=== PATIENT | male | born 1955 | race Caucasian/White ===

== ENCOUNTER 2018-07-06 16:06 | Emergency (ER) | payer BC, OTHER ==
[~2018-07-06] VITALS: Ht 177.8 cm; Wt 76.6 kg
[~2018-07-06 16:06] MED LIST: AMANTADINE100 MG; CARBIDOPA-LEVO1 EAC2; CARBIDOPA/LEVO1 EACH PO; FLOMAX0.4 M1; FLOMAX0.4 MG PO; PERCOCET 5/31 TABLET PO; STALEVO 1501 TAB; SYMMETREL100 MG PO
[2018-07-06 21:26] LABS: HEMATOCRIT 42.6 % (38.0-50.0); MCH 28.3 PG (29.0-34.0); MCHC 32.9 G/DL (30.0-36.0); MCV 86.2 FL (86-99); PLATELET COUNT 242 K/uL (156-360); RBC DIS.WIDTH-CV 13.8 % (11.8-14.6); RBC DIS.WIDTH-SD 43.7 % (39-53); RED BLOOD COUNT 4.94 M/uL (4.00-5.50); WHITE BLOOD COUNT 10.7 K/uL (4.1-10.2)
[2018-07-06 21:29] LABS: ALBUMIN 3.7 g/dL (3.2-4.8); CHLORIDE 110 mEq/L (99-109); POTASSIUM 4.9 mEq/L (3.7-5.4); SODIUM 144 mEq/L (136-147)
[2018-07-06 21:31] LABS: INTER. NORMALIZED RATIO 1.1
[2018-07-06 21:32] LABS: GLUCOSE 99 mg/dL (70-99); TOTAL PROTEIN 6.7 g/dL (6.4-8.3)
[2018-07-06 21:33] LABS: PTT 25.8 SEC (25-37)
[2018-07-06 21:34] LABS: TOTAL BILIRUBIN 1.1 mg/dL (0.0-1.0)
[2018-07-06 21:35] LABS: ALKALINE PHOSPHATASE 131 IU/L (3-129)
[2018-07-06 21:36] LABS: CREATININE 0.9 mg/dL (0.6-1.3); GFR ESTIMATE (CALCULATED) > 59 mL/min/ (58.99-99999)
[2018-07-06 21:37] LABS: AST (GOT) 40 IU/L (2-34); UREA NITROGEN (BUN) 19 mg/dL (9-23)
[2018-07-06 21:38] LABS: ALT (GPT) 6 IU/L (3-49)
[2018-07-06 21:53] LABS: APPEARANCE CLEAR ((CLEAR)); BILIRUBIN NEGATIVE; BLOOD NEGATIVE; COLOR YELLOW ((YELLOW)); GLUCOSE (STRIP) NEGATIVE; KETONES 20; LEUKOCYTES NEGATIVE; NITRITE NEGATIVE; PROTEIN (STRIP) NEGATIVE; SPECIFIC GRAVITY 1.025 (1.000-1.030); UROBILINOGEN 0.2 MG/DL (0.2-1.0)
[2018-07-06] MEDS ORDERED: PERCOCET 7.51 TABLET PO (23:52)
[2018-07-06 23:55] VITALS: BP 128/78
== END 2018-07-06 23:56 | disposition home or self-care (01) ==
LOC: EME 16:06
PROVIDERS: Physician Assistant
DX: S22.42XA Multiple fractures of ribs, left side, initial encounter for closed fracture (principal); S27.1XXA Traumatic hemothorax, initial encounter; W18.30XA Fall on same level, unspecified, initial encounter; G20 Parkinson's disease; R29.6 Repeated falls; M50.322 Other cervical disc degeneration at C5-C6 level
CPT/HCPCS: 70450; 71046; 71250; 72125; 80053; 81003; 85027; 85610; 85730; 86850; 86900; 86901; 99281; 99285; J7030